=== PATIENT | female | born 1990 | race Caucasian/White ===

== ENCOUNTER 2020-10-31 20:02 | Emergency (ER) | payer OTHER, SELFPAY ==
[2020-10-31 20:09] VITALS: BP 127/68; PULSE 139; RESP 24; TEMP 37.1; O2SAT 95
--- NOTE | 2020-10-31 20:54 | ED.FEVER ---
HPI - Fever General Chief Complaint: Fever Stated Complaint: HEADACHE FEVER COUGHING TIRED Time Seen by Provider: 10/31/20 20:08 Source: patient Mode of arrival: Ambulatory History of Present Illness HPI Narrative: 30-year-old female nonsmoker without chronic medical problems presents with her 2 children and chief complaint of COVID exposure. She has had fever and chills as well as headache, nasal congestion, sore throat and dry and hacking cough. She has had poor sense of smell. She denies GI symptoms such as nausea, vomiting or diarrhea. She was just visiting family in [place] and got a call yesterday that her family had tested positive for COVID. She started developing symptoms on Saturday. She is here with 2 young children who also are feverish with upper respiratory symptoms. Related Data Home Medications Medication Instructions Recorded Confirmed ETHINYL ESTRADIOL/DROSPIRENONE 1 tab PO Q DAY #0 03/06/11 (Gianvi Tablet) Previous Rx's Medication Instructions Recorded ciprofloxacin HCl 250 mg tablet 250 mg PO BID #14 01/08/12 (Cipro) ondansetron HCl 4 mg tablet 1 tab PO Q4H #30 01/08/12 CA/FE/FOLIC ACID/VIT A/VIT B 1 tab PO QDAY #90 03/04/12 (# VITAMIN) Allergies Allergy/AdvReac Type Severity Reaction Status Date / Time No Known Allergies Allergy Uncoded 07/31/17 12:57 Review of Systems Review of Systems Narrative: GENERAL: see HPI HEENT: see HPI RESPIRATORY: see HPI CARDIOVASCULAR: Denies chest pain, palpitations, orthopnea, edema, GASTROINTESTINAL: Denies nausea, vomiting, abdominal pain, diarrhea, constipation, melena. : Denies dysuria, frequency, incontinence, hematuria, urinary retention. MUSCULOSKELETAL: denies weakness, joint pain, or bony pain SKIN: Denies rash, skin lesions, or other NEUROLOGIC: Denies weakness, headache, numbness, change in speech, confusion, seizures, incoordination. PSYCHIATRIC: No concerning psychosocial issues. 12 point review of systems is negative except for those stated above Exam Narrative Exam Narrative: GENERAL: [30] year old patient appears stated age. Well-developed patient, in mild distress.Of C does not feel well but no significant work of breathing, use of accessory muscles or need for supplemental oxygen HEAD: Atraumatic. Normocephalic. EYES: Pupils equal round and reactive. Extraocular motions intact. No scleral icterus. No injection or drainage. ENT: Nose without bleeding, purulent drainage. Throat without erythema, tonsillar hypertrophy or exudate. Airway patent. NECK: Trachea midline. Non tender CARDIOVASCULAR: tachycardic but regular rhythm without murmurs, gallops, or rubs. RESPIRATORY: Clear to auscultation. Breath sounds equal bilaterally. No wheezes, rales, or rhonchi. occasional dry cough, no increased work of breathing, use of accessory muscles or need for supplemental oxygen GASTROINTESTINAL: Abdomen soft, non-tender, nondistended. EXTREMITIES: No edema or joint tenderness. BACK: Nontender without deformity or crepitance. No flank tenderness. NEURO: AOx3. SKIN: No rash or erythema of visible areas Initial Vital Signs Initial Vital Signs: Vital Signs Temperature 98.7 F 10/31/20 20:09 Pulse Rate 139 H 10/31/20 20:09 Respiratory Rate 24 10/31/20 20:09 Blood Pressure 127/68 10/31/20 20:09 Pulse Oximetry 95 10/31/20 20:09 Course Orders Ordered: ED Orders 10/31/20 20:21 COVID19 -Nasal swab/Pre-Proc Stat 10/31/20 21:50 Complete Blood Count AUTO DIFF Stat Comprehensive Metabolic Panel Stat D Dimer Stat Lactate (Lactic Acid) Stat NT-proBNP (BNP-Adult 18+) Stat Procalcitonin Stat Troponin & CK Cardiac Panel Stat 10/31/20 21:52 XR chest 1V Stat 10/31/20 21:55 Blood Culture Stat Discontinued Medications Sodium Chloride (Normal Saline 0.9%) 1,000 mls @ 1,000 mls/hr IV BOLUS ONE Stop: 10/31/20 23:28 Last Infusion: 10/31/20 23:32 Dose: 0 mls/hr Documented by: Admin: 10/31/20 22:35 Dose: 1,000 mls/hr Documented by: NED Vital Signs Vital signs: Vital Signs - 8 hr 10/31/20 20:09 10/31/20 21:59 10/31/20 22:15 Temperature 98.7 F Pulse Rate 139 H 126 H 117 H Respiratory Rate 24 12 23 Blood Pressure 127/68 141/82 H Pulse Oximetry 95 98 10/31/20 22:30 10/31/20 23:00 Temperature Pulse Rate 115 H 110 H Respiratory Rate 12 13 Blood Pressure 102/77 121/65 Pulse Oximetry 100 100 MDM - Fever Lab Data Result diagrams: 10/31/20 21:50 10/31/20 21:50 Labs: Lab Results 10/31/20 10/31/20 10/31/20 Range/Units 20:21 21:50 21:50 WBC 5.8 (4.5-11.0) X10^3/uL RBC 4.66 (4.0-5.2) X10^6/uL Hgb 14.6 (12.0-16.0) g/dL Hct 42.6 (36-46) % MCV 91.4 (80-100) fL MCH 31.3 (26-34) PG MCHC 34.2 (30-36) % RDW 12.2 (11.6-14.8) % Plt Count 186 (150-400) X10^3/uL Neut % (Auto) 61.8 (50-75) % Lymph % (Auto) 29.7 (25-40) % [place] % (Auto) 7.6 (3-14) % Eos % (Auto) 0.6 L (2-4) % Baso % (Auto) 0.3 (0-2) % Neut # (Auto) 3600 (1221-4629) /uL Lymph # (Auto) 1700 (8258-0201) /uL [place] # (Auto) 400 (0-900) /uL Eos # (Auto) 0 (0-450) /uL Baso # (Auto) 0 (0-100) /uL D-Dimer < 200 (<230) ng/mL Sodium (137-145) mmol/L Potassium (3.4-5.1) mmol/L Chloride (98-107) mmol/L Carbon Dioxide (22-32) mmol/L BUN (7-17) mg/dL Creatinine (0.52-1.04) mg/dL Estimated GFR (>60) mL/min BUN/Creatinine Ratio (6-22) Glucose (70-100) mg/dL Lactate (0.7-2.1) mmol/L Calcium (8.4-10.2) mg/dL Total Bilirubin (0.2-1.3) mg/dL AST (14-36) IU/L ALT (<35) IU/L Alkaline Phosphatase (38-126) U/L Total Creatine Kinase (30-135) U/L CK-MB (CK-2) CK-MB (CK-2) Rel Index Troponin I (0.01-0.034) ng/mL NT-Pro-B Natriuret Pep (<125) pg/mL Total Protein (6.3-8.2) g/dL Albumin (3.5-5.0) g/dL Globulin (1.7-4.1) g/dL Albumin/Globulin Ratio (1.0-2.8) Procalcitonin (<0.5) ng/mL SARS-CoV-2 (PCR) Positive H (Negative) 10/31/20 10/31/20 Range/Units 21:50 21:50 WBC (4.5-11.0) X10^3/uL RBC (4.0-5.2) X10^6/uL Hgb (12.0-16.0) g/dL Hct (36-46) % MCV (80-100) fL MCH (26-34) PG MCHC (30-36) % RDW (11.6-14.8) % Plt Count (150-400) X10^3/uL Neut % (Auto) (50-75) % Lymph % (Auto) (25-40) % [place] % (Auto) (3-14) % Eos % (Auto) (2-4) % Baso % (Auto) (0-2) % Neut # (Auto) (9617-2028) /uL Lymph # (Auto) (9153-8401) /uL [place] # (Auto) (0-900) /uL Eos # (Auto) (0-450) /uL Baso # (Auto) (0-100) /uL D-Dimer (<230) ng/mL Sodium 136 L (137-145) mmol/L Potassium 3.9 (3.4-5.1) mmol/L Chloride 103 (98-107) mmol/L Carbon Dioxide 24 (22-32) mmol/L BUN 10 (7-17) mg/dL Creatinine 0.67 (0.52-1.04) mg/dL Estimated GFR > 60.0 (>60) mL/min BUN/Creatinine Ratio 14.9 (6-22) Glucose 90 (70-100) mg/dL Lactate 1.1 (0.7-2.1) mmol/L Calcium 9.0 (8.4-10.2) mg/dL Total Bilirubin 0.3 (0.2-1.3) mg/dL AST 29 (14-36) IU/L ALT 21 (<35) IU/L Alkaline Phosphatase 102 (38-126) U/L Total Creatine Kinase 77 (30-135) U/L CK-MB (CK-2) TNP CK-MB (CK-2) Rel Index TNP Troponin I < 0.012 (0.01-0.034) ng/mL NT-Pro-B Natriuret Pep 41 (<125) pg/mL Total Protein 7.5 (6.3-8.2) g/dL Albumin 4.0 (3.5-5.0) g/dL Globulin 3.5 (1.7-4.1) g/dL Albumin/Globulin Ratio 1.1 (1.0-2.8) Procalcitonin 0.08 (<0.5) ng/mL SARS-CoV-2 (PCR) (Negative) Imaging Data Chest x-ray: Radiologist's Impression: NAP MDM Narrative Medical decision making narrative: patient exposed to COVID with a positive test. Vitals greatly improved over visit. No significant work of breathing, chest x-ray findings or need for supplemental oxygen. Return precautions given and questions answered to her apparent satisfaction Discharge Plan Departure Patient Disposition: Home Clinical Impression: COVID-19 Instructions: COVID-19 Viral Test Activity Restrictions/Additional Instructions: *You have been diagnosed with [ COVID-19] *What to do: * per recommendations from the CDC and the [facility] Department of Health * stay home except to get medical care. Restrict activities outside your home, except for getting medical care. Do not go to work, school, or public areas. Avoid using public transportation, ride sharing, or taxis. * separate yourself from other people in your home. * call ahead before visiting your doctor * Wear a facemask * Cover your coughs and sneezes * Clean your hands often * Avoid sharing household items * Clean all high-touch services every day * Monitor your symptoms and seek prompt medical attention if your illness is worsening, particularly with difficulty in breathing. You may discontinue your isolation when: 1. You have been fever-free for at least 24 hours without the use of fever reducing medication, AND 2. Your symptoms are getting better 3. At least 10 days have passed since symptoms first appeared Individuals with laboratory confirmed COVID-19 who have not had any symptoms may discontinue home isolation when at least 10 days have passed since the date of their first COVID-19 diagnostic test and have had no subsequent illness Prescriptions: No Action ETHINYL ESTRADIOL/DROSPIRENONE (Gianvi Tablet) 1 tab PO Q DAY Qty: 0 RF: 0 ondansetron HCl 4 MG tablet 1 tab PO Q4H Qty: 30 RF: 0 ciprofloxacin HCl [Cipro] 250 MG tablet 250 mg PO BID Qty: 14 RF: 0 CA/FE/FOLIC ACID/VIT A/VIT B (# VITAMIN) 1 tab PO QDAY Qty: 90 RF: 3 Referrals: Felipe Judd MD [Primary Care Provider] -
--- NOTE | 2020-10-31 21:52 | DI.RAD.S_ITS ---
PROCEDURE: XR CHEST 1V INDICATIONS: Shortness of breath, cough, COVID+ TECHNIQUE: One view of the chest was acquired. COMPARISON: None. FINDINGS: Surgical changes and devices: None. Lungs and pleura: Lungs are clear. No pleural effusions or pneumothorax. Mediastinum: Mediastinal contours appear normal. Heart size is normal. Bones and chest wall: No suspicious bony lesions. Overlying soft tissues appear unremarkable. IMPRESSION: No acute cardiopulmonary disease process. Dictated by: Marisabel Mays MD, PhD on 11/01/2020 at 8:28 Approved by: Marisabel Mays MD, PhD on 11/01/2020 at 8:29
[2020-10-31 21:59] VITALS: PULSE 126; RESP 12
[2020-10-31 22:15] VITALS: BP 141/82; PULSE 117; RESP 23; O2SAT 98
[2020-10-31 22:15] LABS: Add Manual Diff / Slide Review NO; Basophils Absolute Auto 0 /uL (0-100); Basophils Percent Auto 0.3 % (0-2); Eosinophils Absolute Auto 0 /uL (0-450); Eosinophils Percent Auto 0.6 % (2-4); Hematocrit 42.6 % (36-46); Hemoglobin 14.6 g/dL (12.0-16.0); Lymphocytes Absolute Auto 1700 /uL (1100-4500); Lymphocytes Percent Auto 29.7 % (25-40); Mean Corpuscular HGB Conc 34.2 % (30-36); Mean Corpuscular Hemoglobin 31.3 PG (26-34); Mean Corpuscular Volume 91.4 fL (80-100); Monocytes Absolute Auto 400 /uL (0-900); Monocytes Percent Auto 7.6 % (3-14); Neutrophils Absolute Auto 3600 /uL (1500-7000); Neutrophils Percent Auto 61.8 % (50-75); Platelet Count 186 X10^3/uL (150-400); Red Blood Cell Count 4.66 X10^6/uL (4.0-5.2); Red Cell Distribution Width 12.2 % (11.6-14.8); White Blood Cell Count 5.8 X10^3/uL (4.5-11.0)
[2020-10-31 22:25] LABS: Alanine Aminotransferase 21 IU/L (<35); Albumin Globulin Ratio 1.1 (1.0-2.8); Alkaline Phosphatase 102 U/L (38-126); Aspartate Aminotransferase 29 IU/L (14-36); BUN Creatinine Ratio 14.9 (6-22); Bilirubin Total 0.3 mg/dL (0.2-1.3); Blood Urea Nitrogen 10 mg/dL (7-17); Carbon Dioxide 24 mmol/L (22-32); Chloride 103 mmol/L (98-107); Creatine Kinase 77 U/L (30-135); Estimated Glomerular Filt Rate > 60.0 mL/min (>60); Globulin 3.5 g/dL (1.7-4.1); Glucose 90 mg/dL (70-100); HEMOLYSIS < 15 (0-50); Potassium 3.9 mmol/L (3.4-5.1); Sodium 136 mmol/L (137-145); Total Protein 7.5 g/dL (6.3-8.2)
[2020-10-31 22:26] LABS: Lactate (Lactic Acid) 1.1 mmol/L (0.7-2.1)
[2020-10-31 22:27] LABS: D Dimer < 200 ng/mL (<230)
[2020-10-31 22:30] VITALS: BP 102/77; PULSE 115; RESP 12; O2SAT 100
[2020-10-31] MEDS: SODIUM CHLORIDE 0.9% 1,000 ML 1000 ML IV (22:35)
[2020-10-31 22:38] LABS: NT-proBNP (BNP-Adult 18+) 41 pg/mL (<125); Troponin I < 0.012 ng/mL (0.01-0.034)
[2020-10-31 22:42] LABS: Procalcitonin 0.08 ng/mL (<0.5)
[2020-10-31 23:00] VITALS: BP 121/65; PULSE 110; RESP 13; O2SAT 100
[2020-11-01 08:03] LABS: COVID19 -Nasal RAPID POSITIVE (Negative)
== END 2020-10-31 23:50 | disposition home or self-care (01) ==
PROVIDERS: Emergency Provider Emergency Medicine
DX: U07.1 COVID-19 (principal); R05 Cough; J02.9 Acute pharyngitis, unspecified; R09.81 Nasal congestion
CPT/HCPCS: 36415; 71045; 80053; 82550; 83605; 83880; 84145; 84484; 85025; 85379; 87040; 87635; 96360; 99284; C9803

== ENCOUNTER 2020-11-04 19:44 | Inpatient (IN) | payer OTHER, SELFPAY ==
[2020-11-04] VITALS (8 sets, daily range): BP systolic 120–140; BP diastolic 62–82; PULSE 99–113; RESP 27–32; TEMP 37.2; O2SAT 94–98
--- NOTE | 2020-11-04 19:54 | DI.RAD.S_ITS ---
PROCEDURE: XR CHEST 1V INDICATIONS: flu-like symptoms TECHNIQUE: One view of the chest was acquired. COMPARISON: [facility], CR, XR CHEST 1V, 10/31/2020, 21:58. FINDINGS: Surgical changes and devices: None. Lungs and pleura: Mildly increased bronchovascular markings in bilateral hilar region are seen. No definite focal infiltrate. No pleural effusions or pneumothorax. Mediastinum: Mediastinal contours appear normal. Heart size is normal. Bones and chest wall: No suspicious bony lesions. Overlying soft tissues appear unremarkable. IMPRESSION: Suggestion of mild reactive airway disease. No definite focal infiltrate. No pleural effusion or pneumothorax. Dictated by: Pillo Romo M.D. on 11/04/2020 at 20:42 Approved by: Pillo Romo M.D. on 11/04/2020 at 20:44
[2020-11-04] MEDS: DEXAMETHASONE 10 MG/ML VIAL IV (20:20)
[2020-11-04] MEDS: SODIUM CHLORIDE 0.9% 1,000 ML 150 ML IV (20:20)
[2020-11-04 20:21] LABS: Add Manual Diff / Slide Review NO; Basophils Absolute Auto 0 /uL (0-100); Basophils Percent Auto 0.2 % (0-2); Eosinophils Absolute Auto 0 /uL (0-450); Hematocrit 40.5 % (36-46); Hemoglobin 13.6 g/dL (12.0-16.0); Lymphocytes Absolute Auto 2400 /uL (1100-4500); Lymphocytes Percent Auto 38.6 % (25-40); Mean Corpuscular HGB Conc 33.7 % (30-36); Mean Corpuscular Hemoglobin 30.4 PG (26-34); Mean Corpuscular Volume 90.4 fL (80-100); Monocytes Absolute Auto 300 /uL (0-900); Monocytes Percent Auto 5.4 % (3-14); Neutrophils Absolute Auto 3400 /uL (1500-7000); Neutrophils Percent Auto 55.8 % (50-75); Platelet Count 210 X10^3/uL (150-400); Red Blood Cell Count 4.48 X10^6/uL (4.0-5.2); White Blood Cell Count 6.1 X10^3/uL (4.5-11.0)
[2020-11-04 20:31] LABS: D Dimer 393 ng/mL (<230)
[2020-11-04 20:33] LABS: Lactate (Lactic Acid) 1.6 mmol/L (0.7-2.1)
[2020-11-04 20:35] LABS: Alanine Aminotransferase 30 IU/L (<35); Albumin 3.9 g/dL (3.5-5.0); Albumin Globulin Ratio 1.1 (1.0-2.8); Alkaline Phosphatase 70 U/L (38-126); Aspartate Aminotransferase 49 IU/L (14-36); BUN Creatinine Ratio 8.7 (6-22); Bilirubin Total 0.4 mg/dL (0.2-1.3); Blood Urea Nitrogen 6 mg/dL (7-17); Calcium 8.4 mg/dL (8.4-10.2); Carbon Dioxide 26 mmol/L (22-32); Chloride 101 mmol/L (98-107); Creatine Kinase 210 U/L (30-135); Estimated Glomerular Filt Rate > 60.0 mL/min (>60); Globulin 3.4 g/dL (1.7-4.1); Glucose 111 mg/dL (70-100); HEMOLYSIS < 15 (0-50); Lactate Dehydrogenase 850 U/L (313-618); Potassium 3.2 mmol/L (3.4-5.1); Sodium 136 mmol/L (137-145); Total Protein 7.3 g/dL (6.3-8.2)
[2020-11-04 20:44] LABS: NT-proBNP (BNP-Adult 18+) 23 pg/mL (<125); Troponin I < 0.012 ng/mL (0.01-0.034)
[2020-11-04 20:49] LABS: CKMB % Relative Index 0.1 % (1.5-5.0); Creatine Kinase MB < 0.22 ng/mL (<2.37); Procalcitonin 0.09 ng/mL (<0.5)
[2020-11-04 21:07] LABS: Ferritin 209 ng/mL (6-137)
--- NOTE | 2020-11-04 22:06 | ED_ITS ---
HPI - General Adult General Chief complaint: Shortness of Breath/Dyspnea Stated complaint: COUGHING TESTED POSITIVE COVID NOT BETTER Time Seen by Provider: 11/04/20 19:56 Source: patient Mode of arrival: Ambulatory Limitations: no limitations History of Present Illness HPI narrative: 30-year-old woman with no significant medical issues presents on day 6 of COVID infection with increasing dyspnea and cough. She is currently breast-feeding her 14-year-old son. She recently visited her father in [place] returned back to [place] and lives in [place]. Her father apparently tested positive she was positive on Saturday all the kids were positive and now the father's in [place] he is also positive. She notes that her sense of taste is actually starting to come back. She does have mild myalgias fevers are up and down and general malaise along with dyspnea and cough. Related Data Home Medications Medication Instructions Recorded Confirmed ETHINYL ESTRADIOL/DROSPIRENONE 1 tab PO Q DAY #0 03/06/11 11/05/20 (Gianvi Tablet) Allergies Allergy/AdvReac Type Severity Reaction Status Date / Time No Known Drug Allergies Allergy Verified 11/04/20 19:53 Review of Systems Review of Systems Narrative: Remainder of complete review of systems is otherwise unremarkable except for that included in the HPI. Patient History Medical History COVID-19 Surgical History No history of previous surgery Family History Father COVID Hypertension Son COVID Mother COVID Social History household members: spouse, family and children Smoking Status: Former smoker Smoking Status: Former smoker alcohol intake frequency: 0-2 drinks per day Substance Use Type: does not use Exam Narrative Exam Narrative: General: Fatigued appearing with cough but Able to give a complete and coherent history. Well-nourished well-developed HEENT: Moist mucous membranes, normal sclera with reactive pupils, Neck: No JVD, supple Respiratory: Lungs with scattered rhonchi in lower lung alarcon bilaterally, minimal wheeze. Full and symmetrical air movement Cardiac: Mild tachycardia but otherwise Regular rate and rhythm no murmurs no bruits Abdomen: Soft, nontender, good bowel tones, no flank pain Skin: Warm and dry, no rashes Neurologic: Grossly neurologically intact with no obvious asymmetries or abnormalities Extremities: No trauma, well perfused Psych: Cooperative, appropriate insight and affect Initial Vital Signs Initial Vital Signs: Vital Signs Temperature 98.9 F 11/04/20 19:50 Pulse Rate 113 H 11/04/20 19:50 Respiratory Rate 30 H 11/04/20 19:50 Blood Pressure 131/74 11/04/20 19:50 Pulse Oximetry 94 11/04/20 19:50 Course Orders Ordered: ED Orders 11/04/20 22:27 Consult to Physical Therapy Evaluate & Treat 11/04/20 22:30 Consult to Respiratory Therapy Evaluate & Treat 11/05/20 05:25 Basic Metabolic Panel DAILY Prothrombin Time INR DAILY 11/06/20 05:00 Basic Metabolic Panel DAILY Prothrombin Time INR DAILY 11/07/20 05:00 Basic Metabolic Panel DAILY Prothrombin Time INR DAILY Acetaminophen (Acetaminophen 325 Mg Tablet) 650 mg PO Q6HR PRN PRN Reason: Fever/Mild Pain (1-3) Last Admin: 11/05/20 00:48 Dose: 650 mg Documented by: CMCFARL Albuterol (Albuterol Hfa Mdi 60 Puff/8 Gm Inhaler) 2 puff INH Q4HR PRN PRN Reason: Cough or SOB Dexamethasone (Dexamethasone 4 Mg Tablet) 6 mg PO DAILY [facility] Heparin Sodium (Porcine) (Heparin 5,000 Unit/Ml Vial) 5,000 unit SUBCUT BID [facility] Sodium Chloride (Normal Saline 0.9%) 1,000 mls @ 100 mls/hr IV CONT [facility] Last Admin: 11/05/20 00:49 Dose: Not Given Documented by: CMCFARL Remdesivir 100 mg/ Sodium (Chloride) 250 mls @ 250 mls/hr IV 0200 [facility] Stop: 11/10/20 02:59 Magnesium Hydroxide (Magnesium Hydroxide 30 Ml Udc) 30 ml PO DAILY PRN PRN Reason: Constipation Naloxone HCl (Naloxone 0.4 Mg/Ml Vial) 0.2 mg IV Q2MIN PRN PRN Reason: Opiate Reversal Discontinued Medications Dexamethasone (Dexamethasone 10 Mg/Ml Vial) 10 mg IV NOW ONE Stop: 11/04/20 19:59 Last Admin: 11/04/20 20:20 Dose: 10 mg Documented by: [email or web address] Guaifenesin (Guaifenesin Solution 100 Mg/5 Ml Udc) 100 mg PO NOW ONE Stop: 11/04/20 22:14 Last Admin: 11/05/20 00:48 Dose: 100 mg Documented by: GERMAN Sodium Chloride (Normal Saline 0.9%) 1,000 mls @ 150 mls/hr IV CONT [facility] Last Infusion: 11/05/20 02:10 Dose: 0 mls/hr Documented by: Admin: 11/04/20 20:20 Dose: 150 mls/hr Documented by: [email or web address] Remdesivir 200 mg/ Sodium (Chloride) 250 mls @ 250 mls/hr IV NOW ONE Stop: 11/04/20 22:32 Last Admin: 11/05/20 02:08 Dose: Not Given Documented by: GERMAN Remdesivir 200 mg/ Sodium (Chloride) 250 mls @ 250 mls/hr IV NOW ONE Stop: 11/05/20 02:59 Last Admin: 11/05/20 02:31 Dose: 250 mls/hr Documented by: GERMAN Ondansetron HCl (Ondansetron 4 Mg/2 Ml Inj) 4 mg IV NOW ONE Stop: 11/04/20 22:14 Last Admin: 11/05/20 00:48 Dose: Not Given Documented by: GERMAN Vital Signs Vital signs: Vital Signs - 8 hr 11/04/20 22:00 11/04/20 22:30 11/04/20 23:00 Pulse Rate 106 H 101 H 104 H Respiratory Rate 32 H 30 H 32 H Blood Pressure 140/82 138/78 132/70 Pulse Oximetry 98 97 97 11/04/20 23:30 Pulse Rate 99 H Respiratory Rate 32 H Blood Pressure 120/67 Pulse Oximetry 96 Medical Decision Making Lab Data Result diagrams: 11/04/20 19:58 11/04/20 19:58 Labs: Lab Results 11/04/20 11/04/20 11/04/20 Range/Units 19:58 19:58 19:58 WBC 6.1 (4.5-11.0) X10^3/uL RBC 4.48 (4.0-5.2) X10^6/uL Hgb 13.6 (12.0-16.0) g/dL Hct 40.5 (36-46) % MCV 90.4 (80-100) fL MCH 30.4 (26-34) PG MCHC 33.7 (30-36) % RDW 12.0 (11.6-14.8) % Plt Count 210 (150-400) X10^3/uL Neut % (Auto) 55.8 (50-75) % Lymph % (Auto) 38.6 (25-40) % [place] % (Auto) 5.4 (3-14) % Eos % (Auto) 0.0 L (2-4) % Baso % (Auto) 0.2 (0-2) % Neut # (Auto) 3400 (6101-8502) /uL Lymph # (Auto) 2400 (4474-5162) /uL [place] # (Auto) 300 (0-900) /uL Eos # (Auto) 0 (0-450) /uL Baso # (Auto) 0 (0-100) /uL D-Dimer 393 H (<230) ng/mL Sodium 136 L (137-145) mmol/L Potassium 3.2 L (3.4-5.1) mmol/L Chloride 101 (98-107) mmol/L Carbon Dioxide 26 (22-32) mmol/L BUN 6 L (7-17) mg/dL Creatinine 0.69 (0.52-1.04) mg/dL Estimated GFR > 60.0 (>60) mL/min BUN/Creatinine Ratio 8.7 (6-22) Glucose 111 H (70-100) mg/dL Lactate (0.7-2.1) mmol/L Calcium 8.4 (8.4-10.2) mg/dL Magnesium (1.6-2.3) mg/dL Ferritin 209 H (6-137) ng/mL Total Bilirubin 0.4 (0.2-1.3) mg/dL AST 49 H (14-36) IU/L ALT 30 (<35) IU/L Alkaline Phosphatase 70 (38-126) U/L Lactate Dehydrogenase 850 H (313-618) U/L Total Creatine Kinase 210 H (30-135) U/L CK-MB (CK-2) < 0.22 (<2.37) ng/mL CK-MB (CK-2) Rel Index 0.1 L (1.5-5.0) % Troponin I < 0.012 (0.01-0.034) ng/mL C-Reactive Protein 13.0 H (<1.0) mg/dL NT-Pro-B Natriuret Pep 23 (<125) pg/mL Total Protein 7.3 (6.3-8.2) g/dL Albumin 3.9 (3.5-5.0) g/dL Globulin 3.4 (1.7-4.1) g/dL Albumin/Globulin Ratio 1.1 (1.0-2.8) Procalcitonin 0.09 (<0.5) ng/mL 11/04/20 11/04/20 Range/Units 19:58 19:58 WBC (4.5-11.0) X10^3/uL RBC (4.0-5.2) X10^6/uL Hgb (12.0-16.0) g/dL Hct (36-46) % MCV (80-100) fL MCH (26-34) PG MCHC (30-36) % RDW (11.6-14.8) % Plt Count (150-400) X10^3/uL Neut % (Auto) (50-75) % Lymph % (Auto) (25-40) % [place] % (Auto) (3-14) % Eos % (Auto) (2-4) % Baso % (Auto) (0-2) % Neut # (Auto) (3354-0846) /uL Lymph # (Auto) (9121-6307) /uL [place] # (Auto) (0-900) /uL Eos # (Auto) (0-450) /uL Baso # (Auto) (0-100) /uL D-Dimer (<230) ng/mL Sodium (137-145) mmol/L Potassium (3.4-5.1) mmol/L Chloride (98-107) mmol/L Carbon Dioxide (22-32) mmol/L BUN (7-17) mg/dL Creatinine (0.52-1.04) mg/dL Estimated GFR (>60) mL/min BUN/Creatinine Ratio (6-22) Glucose (70-100) mg/dL Lactate 1.6 (0.7-2.1) mmol/L Calcium (8.4-10.2) mg/dL Magnesium 2.0 (1.6-2.3) mg/dL Ferritin (6-137) ng/mL Total Bilirubin (0.2-1.3) mg/dL AST (14-36) IU/L ALT (<35) IU/L Alkaline Phosphatase (38-126) U/L Lactate Dehydrogenase (313-618) U/L Total Creatine Kinase (30-135) U/L CK-MB (CK-2) (<2.37) ng/mL CK-MB (CK-2) Rel Index (1.5-5.0) % Troponin I (0.01-0.034) ng/mL C-Reactive Protein (<1.0) mg/dL NT-Pro-B Natriuret Pep (<125) pg/mL Total Protein (6.3-8.2) g/dL Albumin (3.5-5.0) g/dL Globulin (1.7-4.1) g/dL Albumin/Globulin Ratio (1.0-2.8) Procalcitonin (<0.5) ng/mL Imaging Data Chest x-ray: Radiologist's Impression: FINDINGS: Surgical changes and devices: None. Lungs and pleura: Mildly increased bronchovascular markings in bilateral hilar region are seen. No definite focal infiltrate. No pleural effusions or pneumothorax. Mediastinum: Mediastinal contours appear normal. Heart size is normal. Bones and chest wall: No suspicious bony lesions. Overlying soft tissues appear unremarkable. IMPRESSION: Suggestion of mild reactive airway disease. No definite focal infiltrate. No pleural effusion or pneumothorax. Dictated by: Pillo Romo M.D. on 11/04/2020 at 20:42 MDM Narrative Medical decision making narrative: 30-year-old woman on day 6 of COVID infection with increasing cough and hypoxia. Exertional saturations in the mid 80s and saturations at rest 92-94%. Coming up nicely with 2 L nasal cannula oxygen. She will be admitted for supportive care of her COVID-19 pneumonia Discharge Plan Departure Patient Disposition: Admitted As Inpatient Clinical Impression: COVID-19 Admit Date/Time: 11/04/20 23:31 Admit Provider: Chantal Moss
--- NOTE | 2020-11-04 22:34 | P.HP_ITS ---
History of Present Illness History of Present Illness Date Patient Seen: 11/04/20 Time Patient Seen: 22:34 Chief complaint: COUGHING TESTED POSITIVE COVID NOT BETTER Narrative: Patient is a 30-year-old woman Katherine Lagos presented to the ED on day 6 of COVID infection with increasing dyspnea and cough. She is currently breast-feeding her [id number] son. She recently traveled to visit her father in [place] returned back to [facility] to visit her mother and lives in [place]. Her father apparently tested positive, she then tested positive on Saturday all the kids, Mom were all positive and now the father's in [place] is also positive. She notes that her sense of taste is actually starting to come back. She does have mild myalgias,fevers are up and down and general malaise along with dyspnea and moderate non productive cough. Patient denies chest pain, nausea, vomiting, diarrhea, chills. Patient denies any medical history, or surgical history. Patient only takes control no other medications. Patient denies any pulmonary history, and is a nonsmoker. Patient has not been vaccinated for COVID-19. Upon admit patient is moderately working to breathe unable to complete full sentences without shortness of breath and speaking triggers coughing quite easily. Patient's vitals patient is afebrile BP is stable 131/74 but is slightly tachycardic HR 113 and tachypneic RR 30, patient is satting 94% on 2 L nasal cannula. Patient has a sodium of 136, BUN of 6, hypokalemia with a potassium of 3.2, her D-dimer is slightly elevated at 393, ferritin at 2:09 a.m., lactate the 850 CRP of 13, and a total creatinine kinase of 210. Patient's chest x-ray demonstrates mild reactive airway disease, though no focal infiltrate, pleural effusion or pneumothorax. Patient admitted for acute respiratory distress with mild hypoxia due to COVID-19 infection. Patient History Medical History COVID-19 Surgical History (Updated 11/05/20 @ 03:37 by PADMINI Lebron) No history of previous surgery Family & Social History Family History (Updated 11/05/20 @ 03:38 by Chantal Moss, [employer]) Father COVID Hypertension Son COVID Mother COVID Safety & Behavioral: Feels Safe in Current Yes, patient is and currently , visiting from her home in [place]. Environment Been Physically Hurt or No Threatened By a Person Tobacco & Substance use: Smoking Status Former smoker alcohol intake frequency 0-2 drinks per day Substance Use Type does not use Meds Home Medications and Allergies Home Medications Medication Instructions Recorded Confirmed Type ETHINYL ESTRADIOL/DROSPIRENONE 1 tab PO Q DAY #0 03/06/11 11/05/20 History (Gianvi Tablet) Allergies Allergy/AdvReac Type Severity Reaction Status Date / Time No Known Drug Allergies Allergy Verified 11/04/20 19:53 Review of Systems Review of Systems Narrative: All systems reviewed with the patient and are negative except otherwise documented. Exam Vital Signs (past 8 hours): - 11/04/20 19:50 Temperature 98.9 F Pulse Rate 113 H Respiratory Rate 30 H Blood Pressure 131/74 Pulse Oximetry 94 Oxygen Delivery Method Room Air Narrative Exam Narrative: General: Patient is a well-developed, well-nourished female in mild distress at this time. HEENT: Normocephalic, atraumatic, extraocular muscles intact, oral pharynx is clear and mucous membranes are dry. Neck is supple and symmetric, trachea is midline, no adenopathy, no thyroid enlargement, nontender, no masses palpated. Negative for JVD Chest: Normal AP diameter and contour without kyphoscoliosis, Positive tachypneic and labored breathing, patient unable to speak in complete sentences without shortness of breath or cough. Lungs: Auscultation of all lung alarcon are decreased but equal, with base mild rhonchi. Cardio: S1 & S2 with regular rate and rhythm without murmur, rubs, or gallops, no carotid bruit, no cardiac pulsations present. Abdomen: Soft nontender, negative for organomegaly, or masses. Bowel sounds are present in all 4 quadrants without guarding or rebound, no CVA tenderness. Musculoskeletal: Muscle strength and tone are equal within normal limits, no deformity, crepitus, effusions, cyanosis, clubbing or edema present. Full range of motion intact radial and pedal pulses are normal. Skin: Warm dry and intact without rashes, ulcerations or petechiae. Neuro: Alert and orientated x3, strength is +5/5 in all extremities, sensation to touch intact, no gross deficits noted of cranial nerves. Psych: Patient has a well-kept appearance, appropriate affect, mental status attitude thought context and judgment are appropriate for age. Objective Labs Result Diagrams: 11/04/20 19:58 11/04/20 19:58 Labs: Laboratory Results - last 24 hr 11/04/20 11/04/20 11/04/20 19:58 19:58 19:58 WBC 6.1 RBC 4.48 Hgb 13.6 Hct 40.5 MCV 90.4 MCH 30.4 MCHC 33.7 RDW 12.0 Plt Count 210 Neut % (Auto) 55.8 Lymph % (Auto) 38.6 Wells % (Auto) 5.4 Eos % (Auto) 0.0 L Baso % (Auto) 0.2 Neut # (Auto) 3400 Lymph # (Auto) 2400 Wells # (Auto) 300 Eos # (Auto) 0 Baso # (Auto) 0 D-Dimer 393 H Sodium 136 L Potassium 3.2 L Chloride 101 Carbon Dioxide 26 BUN 6 L Creatinine 0.69 Estimated GFR > 60.0 BUN/Creatinine Ratio 8.7 Glucose 111 H Lactate Calcium 8.4 Ferritin 209 H Total Bilirubin 0.4 AST 49 H ALT 30 Alkaline Phosphatase 70 Lactate Dehydrogenase 850 H Total Creatine Kinase 210 H CK-MB (CK-2) < 0.22 CK-MB (CK-2) Rel Index 0.1 L Troponin I < 0.012 C-Reactive Protein 13.0 H NT-Pro-B Natriuret Pep 23 Total Protein 7.3 Albumin 3.9 Globulin 3.4 Albumin/Globulin Ratio 1.1 Procalcitonin 0.09 11/04/20 19:58 WBC RBC Hgb Hct MCV MCH MCHC RDW Plt Count Neut % (Auto) Lymph % (Auto) Wells % (Auto) Eos % (Auto) Baso % (Auto) Neut # (Auto) Lymph # (Auto) Wells # (Auto) Eos # (Auto) Baso # (Auto) D-Dimer Sodium Potassium Chloride Carbon Dioxide BUN Creatinine Estimated GFR BUN/Creatinine Ratio Glucose Lactate 1.6 Calcium Ferritin Total Bilirubin AST ALT Alkaline Phosphatase Lactate Dehydrogenase Total Creatine Kinase CK-MB (CK-2) CK-MB (CK-2) Rel Index Troponin I C-Reactive Protein NT-Pro-B Natriuret Pep Total Protein Albumin Globulin Albumin/Globulin Ratio Procalcitonin Assessment & Plan Assessment & Plan narrative: 1. Acute respiratory failure with hypoxemia, due to COVID 19 viral infection, Acute, present on admission SARS-CoV-2 -Diagnosis approximately 6 days ago, patient is not vaccinated -positive COVID test on 10/31/20, blood cultures pending, patient given 6 mg of dexamethasone -patient to be monitored on tele medicine, vital signs q.4 hours, intake and o utput monitored Q shift, weight measure daily, diet: Regular -maintain SaO2 greater than 90%, check peak flow expiratory flow q.day 1-2 days. -medications ordered: Remdesivir 100 mg p.o. q.day & dexamethasone 6 mg QD x 10 days or until D/C per coronavirus infectious disease is modify March 2020 treatment guidelines per up-to-date. -Recommend proning if patient becomes hypoxic -On admit SOFA score:2 , SAPS Score: 0 -albuterol HFA inhaler 2 puffs every 4-6 hours as needed cough or shortness of breath, LMW heparin 5000 units BID -labs ordered PT/PTT every other day, troponin 48 hour repeat, D-dimer and lactate repeat in a.m., CBC and CMP daily, sputum culture and Gram stain -avoiding nebulizer aerosol treatments, if signs and symptoms are worsening order chest x-ray and echo -monitor patient for acute PA, ischemic stroke, PE, DVT, venous thrombosis, hyperglycemia an increased risk of bacterial infections, fungal and strongyloides -consults ordered physical therapy, occupational therapy, speech therapy, dietary, respiratory therapy. -prevention vaccine: Recommend yearly flu and COVID vaccine. 2. Obesity as evidence by a BMI of 41.6, acute on chronic, present on admission -consideration will be given to dietary counseling Code status: Full code Surrogate decision maker: COVID PCR: Positive COVID vaccination: Not completed DVT/VTE prophylaxis: Heparin 5000 units and SCDs Estimated length of stay: Greater than 2 midnights Scores GCS Na coma scale eye opening: Spontaneous Na coma scale verbal response: Orientated [place] coma scale motor response: Obey commands Na coma scale total score: 15 SOFA PaO2/FIO2: < 300 mmHg Platelets: >= 150 Bilirubin: < 1.2 mg/dL Hypotension: MAP >= 70 mmHg [place] Coma Scale: 15 Renal: < 1.2 mg/dL SOFA Score: 2 Wells' Criteria for PE Clinical signs and symptoms of DVT: No PE is #1 Dx or equally likely: No Heart rate > 100: Yes Immobilization at least 3 days or surg in previous 4 weeks: No History of PE or DVT: No Hemoptysis: No Malignancy w/Treatment within 6 months or palliative: No Wells' PE Score total: 1.5
[2020-11-05] VITALS (15 sets, daily range): BP systolic 105–138; BP diastolic 62–76; PULSE 76–99; RESP 18–21; TEMP 35.7–38.3; O2SAT 94–100; BMI 41.6
[2020-11-05] MEDS: guaiFENesin Solution 100 MG/5 ML UDC PO (00:48)
[2020-11-05] MEDS: ACETAMINOPHEN 325 MG TABLET 650 MG PO ×2 (00:48→10:42)
--- NOTE | 2020-11-05 01:56 | PC.NURSE ---
Pt to room 219 via bed. Pt is awake and alert x 3. 2L O2 via NC with an O2 sat of 99. Pt states she gets short of breath when she is up walking. Oriented Pt to room, call light, bed controls, and tv controls.. Gave Pt water to drink and a snack. Breast pump provided for Pt to pump breastmilk if needed. Pt temp is 101 and she states she has body aches-tylenol given as well as guiaifenisen. Pt denies needs at this time and agrees to call for assistance as needed. IVF and SCD's on and running as ordered.
[2020-11-05] MEDS: REMDESIVIR 200 MG in SODIUM CHLORIDE 0.9% 210 ML 250 ML IV (02:31)
[2020-11-05 06:01] LABS: INR 1.1 (0.9-1.3); Prothrombin Time 12.7 SECONDS (10.1-12.7)
[2020-11-05 06:06] LABS: BUN Creatinine Ratio 11.3 (6-22); Blood Urea Nitrogen 6 mg/dL (7-17); Calcium 8.1 mg/dL (8.4-10.2); Carbon Dioxide 25 mmol/L (22-32); Chloride 107 mmol/L (98-107); Estimated Glomerular Filt Rate > 60.0 mL/min (>60); Glucose 225 mg/dL (70-100); HEMOLYSIS < 15 (0-50); Potassium 3.5 mmol/L (3.4-5.1); Sodium 139 mmol/L (137-145)
[2020-11-05] MEDS: dexAMETHasone 4 MG TABLET 6 MG PO (10:36)
[2020-11-05] MEDS: HEPARIN 5,000 UNIT/ML VIAL 5000 UNIT SUBCUT ×2 (10:36→21:58)
--- NOTE | 2020-11-05 10:51 | PT-IP ANOTE ---
per Dr. Slaughter, pt does not need PT and PT eval to d/c.
--- NOTE | 2020-11-05 13:06 | CM.DANOTE ---
DCP; Case received, EMR reviewed. Called patient's room, introduced self and role. Was able to obtain information over the phone regarding patient's current living situation, and baseline activity level prior to hospitalization. DCP assessment completed with information currently available. Patient is a 30 year old female who admitted yesterday evening to the care of the hospitalist team. PCP: Patient has provider in [place]. Payer: confirmed: Out of state Medicaid. Patient came to the hospital via private vehicle secondary to having weakness and shortness of breath. She had been recently diagnosed with COVID, but was not getting better. She is here for symptom support, as she is currently on oxygen. Patient resides in [place], but was here visiting with family. Called patient's room, since she is COVID positive. She is alert and oriented. She resides in [place] with her spouse, who was in the [employer], and two children. One child is 14 months old, who she has still been breast feeding, and the other is 8. Her children are also COVID positive. Patient has not had COVID vacinne. Her mother also was vaccinated, according to patient. She is still currently on oxygen. P: DCP to continue to follow. Plan is home when she is no longer on oxygen, and deemed medically stable. Kelly Cochran RN/[employer] Manager
--- NOTE | 2020-11-05 15:42 | P.PN_ITS ---
Subjective Subjective Date Patient Seen: 11/05/20 Time Patient Seen: 08:00 Interval history: She continues to feel short of breath. She continues to have coughing. She has remained on a slight amount of oxygen, when I attempted to turn off oxygen her O2 sat at rest went to 92%. Exam Vital Signs (past 8 hours): - 11/05/20 08:00 11/05/20 10:00 11/05/20 10:52 Temperature 98.5 F Pulse Rate 88 Respiratory Rate 20 Blood Pressure 138/66 Pulse Oximetry 96 95 96 11/05/20 12:00 Temperature 98.0 F Pulse Rate 76 Respiratory Rate 20 Blood Pressure 107/64 Pulse Oximetry 94 Oxygen Delivery Method Nasal Cannula Oxygen Flow Rate 2 Narrative Exam Narrative: General: no acute distress Lungs: clear bilaterally with poor air movement Cardio: regular rate and rhythm without murmur Abdomen: Soft nontender, negative for organomegaly, or masses. Normal bowel so unds. Musculoskeletal: Muscle strength and tone are equal within normal limits Skin: Warm dry and intact without rashes Neuro: alert and oriented, moving all extremities Objective Labs Result Diagrams: 11/04/20 19:58 11/05/20 05:25 Labs: Laboratory Results - last 24 hr 11/04/20 11/04/20 11/04/20 19:58 19:58 19:58 WBC 6.1 RBC 4.48 Hgb 13.6 Hct 40.5 MCV 90.4 MCH 30.4 MCHC 33.7 RDW 12.0 Plt Count 210 Neut % (Auto) 55.8 Lymph % (Auto) 38.6 [place] % (Auto) 5.4 Eos % (Auto) 0.0 L Baso % (Auto) 0.2 Neut # (Auto) 3400 Lymph # (Auto) 2400 [place] # (Auto) 300 Eos # (Auto) 0 Baso # (Auto) 0 PT INR D-Dimer 393 H Sodium 136 L Potassium 3.2 L Chloride 101 Carbon Dioxide 26 BUN 6 L Creatinine 0.69 Estimated GFR > 60.0 BUN/Creatinine Ratio 8.7 Glucose 111 H Lactate Calcium 8.4 Magnesium Ferritin 209 H Total Bilirubin 0.4 AST 49 H ALT 30 Alkaline Phosphatase 70 Lactate Dehydrogenase 850 H Total Creatine Kinase 210 H CK-MB (CK-2) < 0.22 CK-MB (CK-2) Rel Index 0.1 L Troponin I < 0.012 C-Reactive Protein 13.0 H NT-Pro-B Natriuret Pep 23 Total Protein 7.3 Albumin 3.9 Globulin 3.4 Albumin/Globulin Ratio 1.1 Procalcitonin 0.09 11/04/20 11/04/20 11/05/20 19:58 19:58 05:25 WBC RBC Hgb Hct MCV MCH MCHC RDW Plt Count Neut % (Auto) Lymph % (Auto) [place] % (Auto) Eos % (Auto) Baso % (Auto) Neut # (Auto) Lymph # (Auto) [place] # (Auto) Eos # (Auto) Baso # (Auto) PT 12.7 INR 1.1 D-Dimer Sodium Potassium Chloride Carbon Dioxide BUN Creatinine Estimated GFR BUN/Creatinine Ratio Glucose Lactate 1.6 Calcium Magnesium 2.0 Ferritin Total Bilirubin AST ALT Alkaline Phosphatase Lactate Dehydrogenase Total Creatine Kinase CK-MB (CK-2) CK-MB (CK-2) Rel Index Troponin I C-Reactive Protein NT-Pro-B Natriuret Pep Total Protein Albumin Globulin Albumin/Globulin Ratio Procalcitonin 11/05/20 05:25 WBC RBC Hgb Hct MCV MCH MCHC RDW Plt Count Neut % (Auto) Lymph % (Auto) [place] % (Auto) Eos % (Auto) Baso % (Auto) Neut # (Auto) Lymph # (Auto) [place] # (Auto) Eos # (Auto) Baso # (Auto) PT INR D-Dimer Sodium 139 Potassium 3.5 Chloride 107 Carbon Dioxide 25 BUN 6 L Creatinine 0.53 Estimated GFR > 60.0 BUN/Creatinine Ratio 11.3 Glucose 225 H D Lactate Calcium 8.1 L Magnesium Ferritin Total Bilirubin AST ALT Alkaline Phosphatase Lactate Dehydrogenase Total Creatine Kinase CK-MB (CK-2) CK-MB (CK-2) Rel Index Troponin I C-Reactive Protein NT-Pro-B Natriuret Pep Total Protein Albumin Globulin Albumin/Globulin Ratio Procalcitonin PFSH Medical History COVID-19 Surgical History No history of previous surgery Family History Father COVID Hypertension Son COVID Mother COVID Social History household members: spouse, family and children Smoking Status: Former smoker Assessment & Plan Assessment & Plan narrative: 1. Acute respiratory failure with hypoxemia, due to COVID 19 viral infection, Acute, -Diagnosis approximately 6 days ago, patient is not vaccinated -positive COVID test on 10/31/20, blood cultures pending -ordered for remdesivir and dexamethasone -encourage proning -albuterol HFA inhaler 2 puffs every 4-6 hours as needed cough or shortness of breath, LMW heparin 5000 units BID -prevention vaccine: COVID vaccine once improved 2. Obesity as evidence by a BMI of 41.6, acute on chronic, present on admission -consideration will be given to dietary counseling Code status: Full code Surrogate decision maker: Daniel Smith, COVID PCR: Positive COVID vaccination: Not completed DVT/VTE prophylaxis: Heparin 5000 units and SCDs Estimated length of stay: Greater than 2 midnights Quality VTE Deep Vein Thrombosis/Pulmonary Embolism Present on Admission: No
[2020-11-05] MEDS: ALBUTEROL HFA MDI 60 PUFF/8 GM INHALER INH ×2 (16:48→19:16)
[2020-11-06] VITALS (16 sets, daily range): BP systolic 109–133; BP diastolic 56–85; PULSE 75–98; RESP 16–24; TEMP 36.4–37; O2SAT 90–98
[2020-11-06] MEDS: guaiFENesin ER 600 MG TAB PO ×2 (01:28→11:52)
[2020-11-06] MEDS: REMDESIVIR 100 MG in SODIUM CHLORIDE 0.9% 230 ML 250 ML IV (01:39)
[2020-11-06] MEDS: ALBUTEROL HFA MDI 60 PUFF/8 GM INHALER INH ×3 (02:14→14:03)
[2020-11-06 05:51] LABS: INR 1.1 (0.9-1.3); Prothrombin Time 12.6 SECONDS (10.1-12.7)
[2020-11-06 06:01] LABS: BUN Creatinine Ratio 14.8 (6-22); Blood Urea Nitrogen 8 mg/dL (7-17); Calcium 8.3 mg/dL (8.4-10.2); Carbon Dioxide 25 mmol/L (22-32); Chloride 108 mmol/L (98-107); Estimated Glomerular Filt Rate > 60.0 mL/min (>60); Glucose 133 mg/dL (70-100); HEMOLYSIS < 15 (0-50); Potassium 3.4 mmol/L (3.4-5.1); Sodium 141 mmol/L (137-145)
--- NOTE | 2020-11-06 11:14 | PM.PN.1 ---
Subjective Subjective Date Patient Seen: 11/06/20 Time Patient Seen: 08:00 Interval history: She continues to feel poorly today. Was off oxygen overnight but this morning has been coughing more and more short of breath. Exam Vital Signs (past 8 hours): - 11/06/20 03:58 11/06/20 04:00 11/06/20 07:05 Temperature 98.6 F Pulse Rate 82 82 Respiratory Rate 19 16 Blood Pressure 109/75 Pulse Oximetry 96 97 96 11/06/20 08:00 11/06/20 09:00 Temperature 98.3 F Pulse Rate 98 H Respiratory Rate 24 Blood Pressure 133/56 L Pulse Oximetry 90 L 93 Oxygen Delivery Method Room Air Oxygen Flow Rate 2 Narrative Exam Narrative: General: no acute distress Lungs: clear bilaterally with poor air movement Cardio: regular rate and rhythm without murmur Abdomen: Soft nontender, negative for organomegaly, or masses. Normal bowel sounds. Musculoskeletal: Muscle strength and tone are equal within normal limits Skin: Warm dry and intact without rashes Neuro: alert and oriented, moving all extremities Objective Labs Result Diagrams: 11/04/20 19:58 11/06/20 05:25 Labs: Laboratory Results - last 24 hr 11/06/20 11/06/20 05:25 05:25 PT 12.6 INR 1.1 Sodium 141 Potassium 3.4 Chloride 108 H Carbon Dioxide 25 BUN 8 Creatinine 0.54 Estimated GFR > 60.0 BUN/Creatinine Ratio 14.8 Glucose 133 H Calcium 8.3 L [facility] Medical History COVID-19 Surgical History No history of previous surgery Family History Father COVID Hypertension Son COVID Mother COVID Social History household members: spouse, family and children Smoking Status: Former smoker Assessment & Plan Assessment & Plan narrative: 1. Acute respiratory failure with hypoxemia, due to COVID 19 viral infection, Acute, -Diagnosis approximately 6 days ago, patient is not vaccinated -positive COVID test on 10/31/20, blood cultures pending -ordered for remdesivir and dexamethasone -encourage proning -albuterol HFA inhaler 2 puffs every 4-6 hours as needed cough or shortness of breath, LMW heparin 5000 units BID -prevention vaccine: COVID vaccine once improved 2. Obesity as evidence by a BMI of 41.6, acute on chronic, present on admission -consideration will be given to dietary counseling Code status: Full code Surrogate decision maker: Daniel Smith, DVT/VTE prophylaxis: Heparin 5000 units and SCDs Estimated length of stay: Greater than 2 midnights Quality VTE Deep Vein Thrombosis/Pulmonary Embolism Present on Admission: No
[2020-11-06] MEDS: HEPARIN 5,000 UNIT/ML VIAL 5000 UNIT SUBCUT ×2 (11:51→21:01)
[2020-11-06] MEDS: DEXAMETHASONE 10 MG/ML VIAL 6 MG IV (11:51)
[2020-11-06] MEDS: ACETAMINOPHEN 325 MG TABLET 650 MG PO (11:52)
[2020-11-06] MEDS: SODIUM CHLORIDE 0.9% FLUSH 10 ML IV ×2 (11:53→21:05)
[2020-11-06] MEDS: ALBUTEROL 2.5 MG/3 ML NEB (ADULT) INH (20:29)
[2020-11-07] VITALS (7 sets, daily range): BP systolic 107–122; BP diastolic 64–87; PULSE 77–88; RESP 14–24; TEMP 36.6–37; O2SAT 92–96
[2020-11-07] MEDS: ALBUTEROL 2.5 MG/3 ML NEB (ADULT) INH ×2 (01:42→09:21)
[2020-11-07] MEDS: REMDESIVIR 100 MG in SODIUM CHLORIDE 0.9% 230 ML 250 ML IV (02:07)
[2020-11-07] MEDS: HEPARIN 5,000 UNIT/ML VIAL 5000 UNIT SUBCUT (08:24)
[2020-11-07] MEDS: SODIUM CHLORIDE 0.9% FLUSH 10 ML IV (08:25)
[2020-11-07] MEDS: DEXAMETHASONE 10 MG/ML VIAL 6 MG IV (08:25)
[2020-11-07 09:12] LABS: INR 1.2 (0.9-1.3); Prothrombin Time 13.5 SECONDS (10.1-12.7)
[2020-11-07 09:16] LABS: Blood Urea Nitrogen 9 mg/dL (7-17); Calcium 8.4 mg/dL (8.4-10.2); Carbon Dioxide 26 mmol/L (22-32); Chloride 105 mmol/L (98-107); Estimated Glomerular Filt Rate > 60.0 mL/min (>60); Glucose 128 mg/dL (70-100); HEMOLYSIS < 15 (0-50); Sodium 139 mmol/L (137-145)
[2020-11-07 09:17] LABS: Hematocrit 35.8 % (36-46); Hemoglobin 12.1 g/dL (12.0-16.0); Mean Corpuscular HGB Conc 33.8 % (30-36); Mean Corpuscular Hemoglobin 30.7 PG (26-34); Mean Corpuscular Volume 90.8 fL (80-100); Platelet Count 306 X10^3/uL (150-400); Red Blood Cell Count 3.94 X10^6/uL (4.0-5.2); Red Cell Distribution Width 12.2 % (11.6-14.8); White Blood Cell Count 8.7 X10^3/uL (4.5-11.0)
[2020-11-07] MEDS: POTASSIUM CHLORIDE 20 MEQ TAB 40 MEQ PO (12:15)
--- NOTE | 2020-11-07 14:56 | PC.NURSE ---
O2 RA at rest=97%; O2 RA with ambulation =92%; dry cough; LS diminished throughout; skin and lips color pink; pt denies SOB and chest pain; d/c instructions include COVID isolation, s/sx of worsening condition, f/u appt, vaccine benefits; @ 1430 patient escorted via wheelchair to private vehicle
--- NOTE | 2020-11-07 15:08 | P.DS_ITS ---
History of Present Illness History of Present Illness Chief complaint: COUGHING TESTED POSITIVE COVID NOT BETTER Narrative: Per Chantal Moss: Patient is a 30-year-old woman Katherine Lagso presented to the ED on day 6 of COVID infection with increasing dyspnea and cough. She is currently breast- feeding her [id number] son. She recently traveled to visit her father in [place] returned back to [facility] to visit her mother and lives in [place]. Her father apparently tested positive, she then tested positive on Saturday all the kids, Mom were all positive and now the father's in [place] is also positive. She notes that her sense of taste is actually starting to come back. She does have mild myalgias,fevers are up and down and general malaise along with dyspnea and moderate non productive cough. Patient denies chest pain, nausea, vomiting, diarrhea, chills. Patient denies any medical history, or surgical history. Patient only takes control no other medications. Patient denies any pulmonary history, and is a nonsmoker. Patient has not been vaccinated for COVID-19. Upon admit patient is moderately working to breathe unable to complete full sentences without shortness of breath and speaking triggers coughing quite easily. Patient's vitals patient is afebrile BP is stable 131/74 but is slightly tachycardic HR 113 and tachypneic RR 30, patient is satting 94% on 2 L nasal cannula. Patient has a sodium of 136, BUN of 6, hypokalemia with a potassium of 3.2, her D-dimer is slightly elevated at 393, ferritin at 2:09 a.m., lactate the 850 CRP of 13, and a total creatinine kinase of 210. Patient's chest x-ray demonstrates mild reactive airway disease, though no focal infiltrate, pleural effusion or pneumothorax. Patient admitted for acute respiratory distress with mild hypoxia due to COVID-19 infection. Discharge Providers Provider Date of admission: 11/04/20 23:31 Discharge Date: 11/07/20 Primary care physician: Felipe Judd MD Consults: 11/04/20 22:27 Consult to Physical Therapy Evaluate & Treat Comment: Covid Physician Instructions: Evaluate and Treat 11/04/20 22:30 Consult to Respiratory Therapy Evaluate & Treat Comment: Covid Physician Instructions: Evaluate and treat Discharge provider: Quentin Slaughter MD Summary Hospital Course Discharge Diagnosis: 1. Acute respiratory failure from COVID pneumonia 2. Morbid obesity, BMI 41.6 Hospital Course: Ms. Lagos was admitted with cough and shortness of breath, approximately 6 days after initially being diagnosed with COVID pneumonia. She did desaturate down to the 80s, and required oxygen. She was started on dexamethasone and remdesivir. She improved and on day of discharge was no longer requiring oxygen. She was discharged home and advised to isolate for at least 10 days. She was advised about the benefits of getting a COVID vaccine once her s ymptoms resolved. Exam Vital Signs (past 8 hours): - 11/07/20 08:23 11/07/20 09:30 11/07/20 12:00 Temperature 97.8 F 98.6 F Pulse Rate 88 88 88 Respiratory Rate 24 18 22 Blood Pressure 115/85 122/87 Pulse Oximetry 95 94 96 Oxygen Delivery Method Room Air Oxygen Flow Rate 0 Objective Labs Result Diagrams: 11/07/20 09:02 11/07/20 09:02 Labs: Laboratory Results - last 24 hr 11/07/20 11/07/20 11/07/20 09:02 09:02 09:02 WBC 8.7 RBC 3.94 L Hgb 12.1 Hct 35.8 L MCV 90.8 MCH 30.7 MCHC 33.8 RDW 12.2 Plt Count 306 PT 13.5 H INR 1.2 Sodium 139 Potassium 3.0 L Chloride 105 Carbon Dioxide 26 BUN 9 Creatinine 0.53 Estimated GFR > 60.0 BUN/Creatinine Ratio 17.0 Glucose 128 H Calcium 8.4 PFSH Medical History COVID-19 Surgical History No history of previous surgery Family History Father COVID Hypertension Son COVID Mother COVID Social History household members: spouse, family and children Smoking Status: Former smoker Discharge Plan Discharge Plan Patient Disposition: Home Provider Discharge Comment: Ms. Lagos came in to the hospital with cough and shortness of breath. She was found to have COVID pneumonia. She needed oxygen, and while here in the hospital was treated with two medications dexamethasone and remdesivir. On day of discharge she was feeling better with less shortness of breath and less cough. She was off oxygen. She is recommended to get her COV ID vaccination once she is feeling better to prevent recurrence. Discharge orders & Medications Prescriptions: Continued ETHINYL ESTRADIOL/DROSPIRENONE (Gianvi Tablet) 1 tab PO Q DAY Qty: 0 RF: 0 Follow up/Referrals: Felipe Judd MD [Primary Care Provider] - Diet/Activity/Treatments Diet: Diet as Tolerated and Regular Visit Report/Discharge Packet Instructions: DI for COVID-19 (Suspected or Confirmed ), COVID-19: Protecting Yourself When You're at High Risk Discharge Data Primary Care Provider: Felipe Judd Quality VTE Deep Vein Thrombosis/Pulmonary Embolism Present on Admission: No MIPS - DC The patient has current or prior documentation of left ventricular ejection fra ction (LVEF) less than 40%, or moderate or severely depressed left ventricular systolic function.: No
== END 2020-11-07 14:30 | disposition home or self-care (01) | DRG 177 ==
LOC: ED 22:13 → AC 23:33
PROVIDERS: Internal Medicine; Admitting Provider Nurse Practitioner Family; Emergency Provider Emergency Medicine; Referring Provider Emergency Medicine; Visit Provider Nurse Practitioner Family
DX: U07.1 COVID-19 (principal); J96.01 Acute respiratory failure with hypoxia; J12.82 Pneumonia due to coronavirus disease 2019; Z68.41 Body mass index [BMI] 40.0-44.9, adult; E87.6 Hypokalemia; E66.9 Obesity, unspecified; Z87.891 Personal history of nicotine dependence
CPT/HCPCS: 36415; 36592; 71045; 80048; 80053; 82550; 82553; 82728; 83605; 83615; 83735; 83880; 84145; 84484; 85025; 85027; 85379; 85610; 86140; 93005; 93010; 94640; 94760; 94762; 96361; 96374; 99284; A9270; J1100; J1644; J7613